=== PATIENT | female | born 1935 | race Caucasian/White ===

== ENCOUNTER 2016-06-08 18:47 | Inpatient (IN) | payer MEDICARE, OTHER ==
[~2016-06-08] VITALS: Ht 157.5 cm; Wt 54.4 kg
[~2016-06-08 18:47] MED LIST: ACET-784 PO; ASPI81 PO; ATOR20TA86 PO; BISA10S PR; DSS100 PO; FE PR; GLUC1KIT IM; HEPARIN SODIUM,PORCINE 1,000 UNITS/ML VIAL IVP ONE; HYDR-305 PO; INSNOV SQ; INSU100C6 SQ; LISI-662 PO; METF500T4 PO; MOM30 PO; MULT-1203 PO; OS500 PO; SIME125C81 PO; [UNRECOGNIZED DRUG - CODE] PO
[2016-06-08] MEDS ORDERED: ACETAMINOPHEN 325 MG RECTAL SUPPOSITORY PR ONE (19:33)
[2016-06-08] MEDS ORDERED: ACETAMINOPHEN 650 MG RECTAL SUPPOSITORY PR ONE ×2 (19:34→19:45)
[2016-06-08 19:42] LABS: ORIG DRAW (USER) PTCARESTAF
[2016-06-08 19:44] LABS: ANION GAP 6 mmol/L (8-16); CALCIUM, TOTAL 8.5 mg/dL (8.8-10.5); CARBON DIOXIDE 30 mmol/L (22-29); CHLORIDE 102 mmol/L (98-107); GLOMERULAR FILTR. RATE CALC 48 mL/min (>60); POTASSIUM 4.2 mmol/L (3.5-5.1); SODIUM SERUM 138 mmol/L (136-145); UREA NITROGEN, BLOOD 22 mg/dL (7-18)
[2016-06-08 19:50] LABS: ALANINE AMINOTRANSFERASE 15 U/L (12-78); ASPARTATE AMINOTRANSFERASE 23 U/L (15-37); CREATINE KINASE, TOTAL 68 U/L (26-192); TOTAL PROTEIN, SERUM 6.9 g/dL (6.4-8.2)
[2016-06-08 19:52] LABS: INR 1.1 (0.9-1.1)
[2016-06-08 20:05] LABS: BASOPHILS # (AUTO) 0.06 K/uL (0.00-0.20); BASOPHILS % (AUTO) 0.3 % (0.0-2.0); EOSINOPHILS # (AUTO) 0.01 K/uL (0.00-0.70); EOSINOPHILS % (AUTO) 0.06 % (1.0-6.0); HEMATOCRIT 34.6 % (36-46); HEMOGLOBIN 11.5 g/dL (12.0-16.0); LYMPHOCYTES # (AUTO) 1.8 K/uL (1.0-4.8); LYMPHOCYTES % (AUTO) 9.6 % (22.0-44.0); MEAN CORPUSCULAR HEMOGLOBIN 29.3 pg (26.0-34.0); MEAN CORPUSCULAR HGB CONC 33.2 G/dL (31.0-37.0); MEAN CORPUSCULAR VOLUME 88 fL (80-100); MONOCYTES # (AUTO) 1.2 K/uL (0.1-1.0); MONOCYTES % (AUTO) 6.5 % (2.0-9.0); NEUTROPHILS # (AUTO) 15.5 K/uL (1.8-7.7); NEUTROPHILS % (AUTO) 83.6 % (40.0-70.0); PLATELET COUNT (AUTO) 181 K/uL (150-450); RED BLOOD CELL COUNT(AUTO) 3.93 MIL/uL (4.00-5.20); RED CELL DISTRIBUTION WIDTH 13.9 % (11.5-14.5); WHITE BLOOD COUNT (AUTO) 18.6 K/uL (4.5-11.0)
[2016-06-08] MEDS ORDERED: SODIUM CHLORIDE 0.9% 1,000 ML IV ONE ×2 (20:06→21:00)
[2016-06-08 20:29] LABS: APPEARANCE,URINE CLOUDY (CLEAR); GLUCOSE, URINE (UA) NEGATIVE (NEGATIVE); KETONES,URINE NEGATIVE (NEGATIVE); LEUKOCYTE ESTERASE ,URINE SMALL (NEGATIVE); OCCULT BLOOD,URINE NEGATIVE (NEGATIVE); PROTEIN,URINE NEGATIVE (NEGATIVE)
[2016-06-08] MEDS ORDERED: VANCOMYCIN HCL 1 GM/D5% WATER 200 ML IV ONE (20:30)
[2016-06-08 20:33] LABS: ADD UA MICROSCOPIC YES
[2016-06-08 20:45] LABS: RBC,URINE 0-2 /HPF (0-2); SQUAMOUS EPITHELIAL CELL,UR Rare /LPF (None Seen)
[2016-06-08 21:25] LABS: REFLEX LACTIC ACID? YES YES
[2016-06-08] MEDS ORDERED: IPRATROPIUM BROMIDE 0.5 MG/2.5 ML NEB SOLUTION NEB PRN (21:30)
[2016-06-08] MEDS ORDERED: ONDANSETRON HCL 4 MG/2 ML VIAL IVP PRN (21:30)
[2016-06-08] MEDS ORDERED: ACETAMINOPHEN 325 MG TABLET PO PRN ×2 (21:30)
[2016-06-08] MEDS ORDERED: BISACODYL 10 MG RECTAL RECTAL SUPPOSITORY PR PRN ×2 (21:30)
[2016-06-08] MEDS ORDERED: MAGNESIUM HYDROXIDE SUSPENSION 30 ML UDCUP PO PRN ×2 (21:30)
[2016-06-08] MEDS ORDERED: HYDROCODONE/ACETAMINOPHEN 10-325 MG TABLET PO PRN (21:30)
[2016-06-08] MEDS ORDERED: ZOLPIDEM TARTRATE 5 MG TABLET PO PRN (21:30)
[2016-06-08] MEDS ORDERED: ALBUTEROL SULFATE 2.5 MG/0.5 ML NEB SOLUTION NEB PRN (21:30)
[2016-06-08] MEDS ORDERED: HYDROCODONE/ACETAMINOPHEN 5-325 MG TABLET PO PRN (21:30)
[2016-06-08] MEDS ORDERED: MORPHINE SULFATE 2 MG/ML SYRINGE IVP PRN (21:42)
[2016-06-09] VITALS (9 sets, daily range): BP systolic 90–135; BP diastolic 41–77
[2016-06-09] MEDS: HEPARIN SODIUM,PORCINE 5,000 UNITS/ML VIAL SQ SCH ×3 (01:02→16:04)
[2016-06-09] MEDS ORDERED: SODIUM CHLORIDE 0.9% 500 ML IV ONE ×2 (06:51→09:47)
[2016-06-09] MEDS: MetFORMIN HCL 500 MG TABLET PO SCH ×2 (08:00→18:00)
[2016-06-09] MEDS ORDERED: SODIUM BICARBONATE 50 MEQ/50 ML VIAL ONE (08:54)
[2016-06-09] MEDS ORDERED: VANCOMYCIN HCL 1 GM/VIAL ONE (08:54)
[2016-06-09] MEDS ORDERED: LIDOCAINE HCL/PF 1% 30 ML VIAL ONE (08:54)
[2016-06-09] MEDS ORDERED: DOCUSATE SODIUM 100 MG CAPSULE PO SCH (09:00)
[2016-06-09] MEDS ORDERED: VANCOMYCIN HCL 1 GM/VIAL IRRIG ONE (10:00)
[2016-06-09] MEDS ORDERED: LIDOCAINE 1% 30 ML/SOD BICARB 8.4% 4 ML SQ ONE (10:00)
[2016-06-09] MEDS ORDERED: VANCOMYCIN HCL 0.5 GM in DEXTROSE 5%-WATER 100 ML IV ONE (10:00)
[2016-06-09] MEDS: PANTOPRAZOLE SODIUM 40 MG/VIAL IVP SCH (11:06)
[2016-06-09] MEDS: ASPIRIN 81 MG CHEWABLE TABLET PO SCH (12:00)
[2016-06-09] MEDS: DOCUSATE SODIUM 100 MG CAPSULE PO SCH ×2 (12:00→21:00)
[2016-06-09] MEDS: CALCIUM OYSTER SHELL 500 MG TABLET PO SCH ×2 (12:00→21:00)
[2016-06-09] MEDS: MULTIVITAMINS, THERAPEUTIC TABLET PO SCH (12:00)
[2016-06-09] MEDS ORDERED: DEXTROSE 50%-WATER 25 GM/50 ML SYRINGE IVP PRN (12:15)
[2016-06-09 12:45] LABS: BASOPHILS # (AUTO) 0.03 K/uL (0.00-0.20); BASOPHILS % (AUTO) 0.4 % (0.0-2.0); EOSINOPHILS # (AUTO) 0.12 K/uL (0.00-0.70); EOSINOPHILS % (AUTO) 1.31 % (1.0-6.0); HEMATOCRIT 27.5 % (36-46); HEMOGLOBIN 9.3 g/dL (12.0-16.0); LYMPHOCYTES # (AUTO) 1.5 K/uL (1.0-4.8); LYMPHOCYTES % (AUTO) 17.4 % (22.0-44.0); MEAN CORPUSCULAR HEMOGLOBIN 29.5 pg (26.0-34.0); MEAN CORPUSCULAR HGB CONC 33.7 G/dL (31.0-37.0); MEAN CORPUSCULAR VOLUME 87 fL (80-100); MONOCYTES # (AUTO) 0.4 K/uL (0.1-1.0); MONOCYTES % (AUTO) 4.1 % (2.0-9.0); NEUTROPHILS # (AUTO) 6.8 K/uL (1.8-7.7); NEUTROPHILS % (AUTO) 76.8 % (40.0-70.0); PLATELET COUNT (AUTO) 142 K/uL (150-450); RED BLOOD CELL COUNT(AUTO) 3.15 MIL/uL (4.00-5.20); RED CELL DISTRIBUTION WIDTH 14.3 % (11.5-14.5); WHITE BLOOD COUNT (AUTO) 8.9 K/uL (4.5-11.0)
[2016-06-09 12:57] LABS: ANION GAP 4 mmol/L (8-16); CALCIUM, TOTAL 7.7 mg/dL (8.8-10.5); CARBON DIOXIDE 29 mmol/L (22-29); CHLORIDE 108 mmol/L (98-107); CREATININE 0.73 mg/dL (0.60-1.30); GLOMERULAR FILTR. RATE CALC > 60 mL/min (>60); POTASSIUM 3.5 mmol/L (3.5-5.1); SODIUM SERUM 141 mmol/L (136-145); UREA NITROGEN, BLOOD 18 mg/dL (7-18)
[2016-06-09 13:03] LABS: ALANINE AMINOTRANSFERASE 13 U/L (12-78); ALBUMIN 2.5 g/dL (3.4-5.0); ASPARTATE AMINOTRANSFERASE 19 U/L (15-37); BILIRUBIN,TOTAL 0.8 mg/dL (0.1-1.0); TOTAL PROTEIN, SERUM 5.8 g/dL (6.4-8.2)
[2016-06-09] MEDS ORDERED: SIMETHICONE 80 MG CHEWABLE TABLET CHEW PRN (15:15)
[2016-06-09] MEDS: ATORVASTATIN CALCIUM 20 MG TABLET PO SCH (21:00)
[2016-06-10] MEDS: HEPARIN SODIUM,PORCINE 5,000 UNITS/ML VIAL SQ SCH ×3 (02:11→16:31)
[2016-06-10 04:02] VITALS: BP 144/58
[2016-06-10 06:27] LABS: GLUCOSE,POINT OF CARE 76 MG/DL (70-110)
[2016-06-10 08:17] LABS: BASOPHILS # (AUTO) 0.05 K/uL (0.00-0.20); BASOPHILS % (AUTO) 0.7 % (0.0-2.0); EOSINOPHILS % (AUTO) 3.71 % (1.0-6.0); HEMATOCRIT 29.9 % (36-46); HEMOGLOBIN 10.1 g/dL (12.0-16.0); LYMPHOCYTES # (AUTO) 1.9 K/uL (1.0-4.8); MEAN CORPUSCULAR HEMOGLOBIN 29.8 pg (26.0-34.0); MEAN CORPUSCULAR HGB CONC 33.9 G/dL (31.0-37.0); MEAN CORPUSCULAR VOLUME 88 fL (80-100); MONOCYTES # (AUTO) 0.5 K/uL (0.1-1.0); MONOCYTES % (AUTO) 5.6 % (2.0-9.0); NEUTROPHILS # (AUTO) 5.3 K/uL (1.8-7.7); PLATELET COUNT (AUTO) 173 K/uL (150-450); RED BLOOD CELL COUNT(AUTO) 3.39 MIL/uL (4.00-5.20); RED CELL DISTRIBUTION WIDTH 13.7 % (11.5-14.5); WHITE BLOOD COUNT (AUTO) 8.1 K/uL (4.5-11.0)
[2016-06-10 08:19] VITALS: BP 130/55
[2016-06-10 08:32] LABS: ALANINE AMINOTRANSFERASE 13 U/L (12-78); ALBUMIN 2.6 g/dL (3.4-5.0); ANION GAP 8 mmol/L (8-16); ASPARTATE AMINOTRANSFERASE 21 U/L (15-37); BILIRUBIN,TOTAL 0.6 mg/dL (0.1-1.0); CALCIUM, TOTAL 8.1 mg/dL (8.8-10.5); CARBON DIOXIDE 29 mmol/L (22-29); CHLORIDE 105 mmol/L (98-107); CREATININE 0.71 mg/dL (0.60-1.30); GLOMERULAR FILTR. RATE CALC > 60 mL/min (>60); POTASSIUM 3.7 mmol/L (3.5-5.1); SODIUM SERUM 142 mmol/L (136-145); UREA NITROGEN, BLOOD 14 mg/dL (7-18)
[2016-06-10] MEDS: CALCIUM OYSTER SHELL 500 MG TABLET PO SCH ×2 (08:58→21:12)
[2016-06-10] MEDS: MULTIVITAMINS, THERAPEUTIC TABLET PO SCH (08:58)
[2016-06-10] MEDS: DOCUSATE SODIUM 100 MG CAPSULE PO SCH ×2 (08:58→21:12)
[2016-06-10] MEDS: ASPIRIN 81 MG CHEWABLE TABLET PO SCH (08:58)
[2016-06-10] MEDS: MetFORMIN HCL 500 MG TABLET PO SCH ×2 (08:58→18:21)
[2016-06-10] MEDS: PANTOPRAZOLE SODIUM 40 MG/VIAL IVP SCH (09:00)
[2016-06-10 11:33] VITALS: BP 136/46
[2016-06-10 11:46] LABS: GLUCOSE,POINT OF CARE 81 MG/DL (70-110)
[2016-06-10 15:22] VITALS: BP 126/53
[2016-06-10 19:27] VITALS: BP 127/58
[2016-06-10] MEDS: ATORVASTATIN CALCIUM 20 MG TABLET PO SCH (21:12)
[2016-06-10 23:28] VITALS: BP 136/51
[2016-06-11] MEDS: HEPARIN SODIUM,PORCINE 5,000 UNITS/ML VIAL SQ SCH ×4 (01:33→20:55)
[2016-06-11 04:07] VITALS: BP 137/73
[2016-06-11 06:19] LABS: BASOPHILS % (AUTO) 0.4 % (0.0-2.0); EOSINOPHILS % (AUTO) 4.8 % (1.0-6.0); HEMATOCRIT 29.8 % (36-46); HEMOGLOBIN 9.8 g/dL (12.0-16.0); LYMPHOCYTES # (AUTO) 1.5 K/uL (1.0-4.8); LYMPHOCYTES % (AUTO) 20.5 % (22.0-44.0); MEAN CORPUSCULAR HEMOGLOBIN 29.4 pg (26.0-34.0); MEAN CORPUSCULAR VOLUME 89 fL (80-100); MONOCYTES # (AUTO) 0.4 K/uL (0.1-1.0); MONOCYTES % (AUTO) 5.9 % (2.0-9.0); NEUTROPHILS # (AUTO) 5.1 K/uL (1.8-7.7); NEUTROPHILS % (AUTO) 68.4 % (40.0-70.0); PLATELET COUNT (AUTO) 180 K/uL (150-450); RED BLOOD CELL COUNT(AUTO) 3.35 MIL/uL (4.00-5.20); RED CELL DISTRIBUTION WIDTH 13.8 % (11.5-14.5); WHITE BLOOD COUNT (AUTO) 7.4 K/uL (4.5-11.0)
[2016-06-11 06:36] LABS: ALANINE AMINOTRANSFERASE 12 U/L (12-78); ALBUMIN 2.5 g/dL (3.4-5.0); ANION GAP 9 mmol/L (8-16); ASPARTATE AMINOTRANSFERASE 20 U/L (15-37); BILIRUBIN,TOTAL 0.6 mg/dL (0.1-1.0); CALCIUM, TOTAL 8.1 mg/dL (8.8-10.5); CARBON DIOXIDE 28 mmol/L (22-29); CHLORIDE 105 mmol/L (98-107); CREATININE 0.77 mg/dL (0.60-1.30); GLOMERULAR FILTR. RATE CALC > 60 mL/min (>60); POTASSIUM 3.4 mmol/L (3.5-5.1); SODIUM SERUM 142 mmol/L (136-145); UREA NITROGEN, BLOOD 12 mg/dL (7-18)
[2016-06-11 08:49] VITALS: BP 146/77
[2016-06-11] MEDS: MetFORMIN HCL 500 MG TABLET PO SCH ×2 (09:08→18:00)
[2016-06-11] MEDS: CALCIUM OYSTER SHELL 500 MG TABLET PO SCH ×3 (09:09→21:00)
[2016-06-11] MEDS: ASPIRIN 81 MG CHEWABLE TABLET PO SCH (09:09)
[2016-06-11] MEDS: PANTOPRAZOLE SODIUM 40 MG/VIAL IVP SCH (09:09)
[2016-06-11] MEDS: DOCUSATE SODIUM 100 MG CAPSULE PO SCH ×3 (09:09→21:00)
[2016-06-11] MEDS: MULTIVITAMINS, THERAPEUTIC TABLET PO SCH (09:09)
[2016-06-11] MEDS ORDERED: POTASSIUM CHLORIDE 20 MEQ ER TABLET PO ONE (09:15)
[2016-06-11 12:05] VITALS: BP 133/58
[2016-06-11 16:28] VITALS: BP 133/59
[2016-06-11 18:12] LABS: GLUCOSE,POINT OF CARE 81 MG/DL (70-110)
[2016-06-11] MEDS ORDERED: VANCOMYCIN HCL 1 GM/D5% WATER 200 ML IV SCH (18:15)
[2016-06-11 18:31] LABS: GLUCOSE,POINT OF CARE 151 MG/DL (70-110)
[2016-06-11] MEDS ORDERED: VANCOMYCIN HCL 1 GM/D5% WATER 200 ML IV ONE (19:00)
[2016-06-11] MEDS ORDERED: SODIUM CHLORIDE 0.9% 250 ML IV ONE (20:49)
[2016-06-11] MEDS: ATORVASTATIN CALCIUM 20 MG TABLET PO SCH ×2 (20:55→21:00)
[2016-06-11] MEDS: VANCOMYCIN HCL 750 MG in DEXTROSE 5%-WATER 150 ML IV SCH (20:56)
[2016-06-11 20:58] VITALS: BP 147/64
[2016-06-12 00:14] VITALS: BP 142/61
[2016-06-12 05:15] VITALS: BP 123/66
[2016-06-12 06:28] LABS: BASOPHILS # (AUTO) 0.03 K/uL (0.00-0.20); BASOPHILS % (AUTO) 0.5 % (0.0-2.0); EOSINOPHILS # (AUTO) 0.33 K/uL (0.00-0.70); EOSINOPHILS % (AUTO) 5.29 % (1.0-6.0); HEMATOCRIT 29.4 % (36-46); HEMOGLOBIN 9.9 g/dL (12.0-16.0); LYMPHOCYTES # (AUTO) 1.6 K/uL (1.0-4.8); LYMPHOCYTES % (AUTO) 25.1 % (22.0-44.0); MEAN CORPUSCULAR HEMOGLOBIN 29.3 pg (26.0-34.0); MEAN CORPUSCULAR HGB CONC 33.8 G/dL (31.0-37.0); MEAN CORPUSCULAR VOLUME 87 fL (80-100); MONOCYTES # (AUTO) 0.4 K/uL (0.1-1.0); MONOCYTES % (AUTO) 6.9 % (2.0-9.0); NEUTROPHILS # (AUTO) 3.8 K/uL (1.8-7.7); NEUTROPHILS % (AUTO) 62.2 % (40.0-70.0); PLATELET COUNT (AUTO) 206 K/uL (150-450); RED BLOOD CELL COUNT(AUTO) 3.39 MIL/uL (4.00-5.20); RED CELL DISTRIBUTION WIDTH 13.6 % (11.5-14.5); WHITE BLOOD COUNT (AUTO) 6.2 K/uL (4.5-11.0)
[2016-06-12 07:18] VITALS: BP 119/60
[2016-06-12 07:22] LABS: ALANINE AMINOTRANSFERASE 14 U/L (12-78); ALBUMIN 2.6 g/dL (3.4-5.0); ANION GAP 10 mmol/L (8-16); ASPARTATE AMINOTRANSFERASE 22 U/L (15-37); BILIRUBIN,TOTAL 0.6 mg/dL (0.1-1.0); CALCIUM, TOTAL 8.4 mg/dL (8.8-10.5); CARBON DIOXIDE 27 mmol/L (22-29); CHLORIDE 104 mmol/L (98-107); CREATININE 0.81 mg/dL (0.60-1.30); GLOMERULAR FILTR. RATE CALC > 60 mL/min (>60); POTASSIUM 3.3 mmol/L (3.5-5.1); SODIUM SERUM 141 mmol/L (136-145); TOTAL PROTEIN, SERUM 6.1 g/dL (6.4-8.2); UREA NITROGEN, BLOOD 9 mg/dL (7-18)
[2016-06-12] MEDS: DOCUSATE SODIUM 100 MG CAPSULE PO SCH ×2 (07:58→20:39)
[2016-06-12] MEDS: MULTIVITAMINS, THERAPEUTIC TABLET PO SCH (07:58)
[2016-06-12] MEDS: HEPARIN SODIUM,PORCINE 5,000 UNITS/ML VIAL SQ SCH ×2 (07:58→16:35)
[2016-06-12] MEDS: CALCIUM OYSTER SHELL 500 MG TABLET PO SCH ×2 (07:58→20:40)
[2016-06-12] MEDS: PANTOPRAZOLE SODIUM 40 MG/VIAL IVP SCH (07:58)
[2016-06-12] MEDS: MetFORMIN HCL 500 MG TABLET PO SCH ×2 (07:58→17:41)
[2016-06-12] MEDS: ASPIRIN 81 MG CHEWABLE TABLET PO SCH (08:00)
[2016-06-12] MEDS ORDERED: POTASSIUM CHLORIDE 20 MEQ ER TABLET PO ONE (11:15)
[2016-06-12 11:22] VITALS: BP 130/46
[2016-06-12] MEDS: INSULIN ASPART 100 UNITS/ML SQ PRN ×2 (12:28→22:04)
[2016-06-12] MEDS: DOPamine HCL 400 MG/D5%-WATER 250 ML IV PRN (18:16)
[2016-06-12 20:00] VITALS: BP 134/58
[2016-06-12] MEDS ORDERED: SODIUM CHLORIDE 0.9% 250 ML IV ONE (20:35)
[2016-06-12] MEDS: VANCOMYCIN HCL 750 MG in DEXTROSE 5%-WATER 150 ML IV SCH (20:39)
[2016-06-12] MEDS: ATORVASTATIN CALCIUM 20 MG TABLET PO SCH (20:39)
[2016-06-13] VITALS: BP 102/46
[2016-06-13] MEDS: HEPARIN SODIUM,PORCINE 5,000 UNITS/ML VIAL SQ SCH ×4 (00:23→23:55)
[2016-06-13 04:00] VITALS: BP 112/44
[2016-06-13 05:03] LABS: BASOPHILS % (AUTO) 0.4 % (0.0-2.0); EOSINOPHILS % (AUTO) 4.4 % (1.0-6.0); HEMATOCRIT 33.8 % (36-46); HEMOGLOBIN 11.1 g/dL (12.0-16.0); LYMPHOCYTES % (AUTO) 24.8 % (22.0-44.0); MEAN CORPUSCULAR HEMOGLOBIN 29.3 pg (26.0-34.0); MEAN CORPUSCULAR VOLUME 89 fL (80-100); MONOCYTES # (AUTO) 0.6 K/uL (0.1-1.0); MONOCYTES % (AUTO) 7.2 % (2.0-9.0); NEUTROPHILS % (AUTO) 63.2 % (40.0-70.0); PLATELET COUNT (AUTO) 242 K/uL (150-450); RED CELL DISTRIBUTION WIDTH 14.1 % (11.5-14.5); WHITE BLOOD COUNT (AUTO) 7.9 K/uL (4.5-11.0)
[2016-06-13 05:30] LABS: ALANINE AMINOTRANSFERASE 17 U/L (12-78); ALBUMIN 2.7 g/dL (3.4-5.0); ANION GAP 6 mmol/L (8-16); ASPARTATE AMINOTRANSFERASE 25 U/L (15-37); BILIRUBIN,TOTAL 0.4 mg/dL (0.1-1.0); CALCIUM, TOTAL 8.8 mg/dL (8.8-10.5); CARBON DIOXIDE 30 mmol/L (22-29); CHLORIDE 103 mmol/L (98-107); CREATINE KINASE, TOTAL 31 U/L (26-192); CREATININE 0.86 mg/dL (0.60-1.30); GLOMERULAR FILTR. RATE CALC > 60 mL/min (>60); POTASSIUM 4.2 mmol/L (3.5-5.1); SODIUM SERUM 139 mmol/L (136-145); TOTAL PROTEIN, SERUM 6.6 g/dL (6.4-8.2); UREA NITROGEN, BLOOD 12 mg/dL (7-18)
[2016-06-13] MEDS: INSULIN ASPART 100 UNITS/ML SQ PRN (06:45)
[2016-06-13 08:00] VITALS: BP 123/58
[2016-06-13] MEDS: VANCOMYCIN HCL 1 GM/D5% WATER 200 ML IV SCH ×2 (08:29→20:05)
[2016-06-13] MEDS: PANTOPRAZOLE SODIUM 40 MG/VIAL IVP SCH (08:29)
[2016-06-13] MEDS: CALCIUM OYSTER SHELL 500 MG TABLET PO SCH ×3 (08:30→20:06)
[2016-06-13] MEDS: MULTIVITAMINS, THERAPEUTIC TABLET PO SCH ×2 (08:30→09:00)
[2016-06-13] MEDS: ASPIRIN 81 MG CHEWABLE TABLET PO SCH (08:31)
[2016-06-13] MEDS: MetFORMIN HCL 500 MG TABLET PO SCH ×2 (08:31→17:30)
[2016-06-13] MEDS: DOCUSATE SODIUM 100 MG CAPSULE PO SCH ×3 (08:31→20:05)
[2016-06-13 09:11] LABS: GLUCOSE COMMENT 1 Received Meds; GLUCOSE,POINT OF CARE 199 MG/DL (70-110)
[2016-06-13 09:12] LABS: GLUCOSE COMMENT 1 Received Meds; GLUCOSE,POINT OF CARE 151 MG/DL (70-110)
[2016-06-13 12:00] VITALS: BP 126/47
[2016-06-13 15:01] LABS: GLUCOSE,POINT OF CARE 122 MG/DL (70-110)
[2016-06-13 15:02] LABS: GLUCOSE,POINT OF CARE 101 MG/DL (70-110)
[2016-06-13 15:02] LABS: GLUCOSE COMMENT 1 Received Meds; GLUCOSE,POINT OF CARE 110 MG/DL (70-110)
[2016-06-13 15:02] LABS: GLUCOSE,POINT OF CARE 147 MG/DL (70-110)
[2016-06-13 15:02] LABS: GLUCOSE COMMENT 1 Juice/Food/D50 Given; GLUCOSE,POINT OF CARE 69 MG/DL (70-110)
[2016-06-13 15:02] LABS: GLUCOSE,POINT OF CARE 89 MG/DL (70-110)
[2016-06-13 15:16] LABS: GLUCOSE,POINT OF CARE 80 MG/DL (70-110)
[2016-06-13 15:16] LABS: GLUCOSE,POINT OF CARE 109 MG/DL (70-110)
[2016-06-13 15:21] LABS: GLUCOSE,POINT OF CARE 86 MG/DL (70-110)
[2016-06-13 16:00] VITALS: BP 140/60
[2016-06-13 17:12] LABS: GLUCOSE COMMENT 1 Received Meds; GLUCOSE,POINT OF CARE 140 MG/DL (70-110)
[2016-06-13] MEDS ORDERED: 0.9% SODIUM CHLORIDE 10 ML SYRINGE IVP PRN (17:15)
[2016-06-13] MEDS: DOPamine HCL 400 MG/D5%-WATER 250 ML IV PRN (18:13)
[2016-06-13 20:00] VITALS: BP 121/71
[2016-06-13] MEDS: ATORVASTATIN CALCIUM 20 MG TABLET PO SCH (20:06)
[2016-06-14] VITALS (7 sets, daily range): BP systolic 100–136; BP diastolic 42–72
[2016-06-14 05:32] LABS: BASOPHILS % (AUTO) 0.3 % (0.0-2.0); EOSINOPHILS % (AUTO) 4.1 % (1.0-6.0); HEMATOCRIT 39.2 % (36-46); HEMOGLOBIN 12.7 g/dL (12.0-16.0); LYMPHOCYTES # (AUTO) 2.1 K/uL (1.0-4.8); LYMPHOCYTES % (AUTO) 21.3 % (22.0-44.0); MEAN CORPUSCULAR HEMOGLOBIN 28.8 pg (26.0-34.0); MEAN CORPUSCULAR HGB CONC 32.4 G/dL (31.0-37.0); MEAN CORPUSCULAR VOLUME 89 fL (80-100); MONOCYTES # (AUTO) 0.7 K/uL (0.1-1.0); MONOCYTES % (AUTO) 6.7 % (2.0-9.0); NEUTROPHILS # (AUTO) 6.7 K/uL (1.8-7.7); NEUTROPHILS % (AUTO) 67.6 % (40.0-70.0); PLATELET COUNT (AUTO) 238 K/uL (150-450); RED BLOOD CELL COUNT(AUTO) 4.41 MIL/uL (4.00-5.20); RED CELL DISTRIBUTION WIDTH 13.8 % (11.5-14.5); WHITE BLOOD COUNT (AUTO) 9.9 K/uL (4.5-11.0)
[2016-06-14 05:41] LABS: BILIRUBIN,TOTAL 0.5 mg/dL (0.1-1.0); CALCIUM, TOTAL 8.6 mg/dL (8.8-10.5); CREATININE 0.92 mg/dL (0.60-1.30); POTASSIUM 3.9 mmol/L (3.5-5.1); TOTAL PROTEIN, SERUM 7.3 g/dL (6.4-8.2)
[2016-06-14] MEDS ORDERED: SODIUM CHLORIDE 0.9% 250 ML IV ONE ×2 (06:34→20:52)
[2016-06-14] MEDS: INSULIN ASPART 100 UNITS/ML SQ PRN (06:59)
[2016-06-14] MEDS: MetFORMIN HCL 500 MG TABLET PO SCH ×2 (07:54→16:46)
[2016-06-14] MEDS: HEPARIN SODIUM,PORCINE 5,000 UNITS/ML VIAL SQ SCH ×2 (08:21→16:46)
[2016-06-14] MEDS: PANTOPRAZOLE SODIUM 40 MG/VIAL IVP SCH (08:21)
[2016-06-14] MEDS: VANCOMYCIN HCL 1 GM/D5% WATER 200 ML IV SCH ×2 (08:21→20:48)
[2016-06-14] MEDS: MULTIVITAMINS, THERAPEUTIC TABLET PO SCH (09:00)
[2016-06-14] MEDS: CALCIUM OYSTER SHELL 500 MG TABLET PO SCH ×2 (09:00→20:48)
[2016-06-14] MEDS: DOCUSATE SODIUM 100 MG CAPSULE PO SCH ×2 (09:00→20:48)
[2016-06-14] MEDS: ASPIRIN 81 MG CHEWABLE TABLET PO SCH (09:00)
[2016-06-14 09:07] LABS: GLUCOSE COMMENT 1 Received Meds; GLUCOSE,POINT OF CARE 151 MG/DL (70-110)
[2016-06-14 10:06] LABS: GLUCOSE COMMENT 1 Received Meds; GLUCOSE,POINT OF CARE 135 MG/DL (70-110)
[2016-06-14] MEDS ORDERED: LIDOCAINE HCL/PF 1% 30 ML VIAL ONE (10:41)
[2016-06-14] MEDS ORDERED: LIDOCAINE 1% 30 ML/SOD BICARB 8.4% 4 ML SQ ONE (11:15)
[2016-06-14] MEDS: ATORVASTATIN CALCIUM 20 MG TABLET PO SCH (20:48)
[2016-06-15] VITALS: BP 94/57
[2016-06-15] MEDS: HEPARIN SODIUM,PORCINE 5,000 UNITS/ML VIAL SQ SCH ×3 (00:13→16:57)
[2016-06-15 04:00] VITALS: BP 98/59
[2016-06-15 05:10] LABS: BASOPHILS # (AUTO) 0.03 K/uL (0.00-0.20); BASOPHILS % (AUTO) 0.3 % (0.0-2.0); EOSINOPHILS # (AUTO) 0.19 K/uL (0.00-0.70); EOSINOPHILS % (AUTO) 1.85 % (1.0-6.0); HEMATOCRIT 34.4 % (36-46); HEMOGLOBIN 11.7 g/dL (12.0-16.0); LYMPHOCYTES # (AUTO) 2.6 K/uL (1.0-4.8); LYMPHOCYTES % (AUTO) 25.2 % (22.0-44.0); MEAN CORPUSCULAR HEMOGLOBIN 29.3 pg (26.0-34.0); MEAN CORPUSCULAR VOLUME 86 fL (80-100); MONOCYTES # (AUTO) 0.9 K/uL (0.1-1.0); NEUTROPHILS # (AUTO) 6.5 K/uL (1.8-7.7); NEUTROPHILS % (AUTO) 63.7 % (40.0-70.0); PLATELET COUNT (AUTO) 264 K/uL (150-450); RED BLOOD CELL COUNT(AUTO) 3.99 MIL/uL (4.00-5.20); RED CELL DISTRIBUTION WIDTH 14.4 % (11.5-14.5); WHITE BLOOD COUNT (AUTO) 10.2 K/uL (4.5-11.0)
[2016-06-15 05:22] LABS: ALBUMIN 2.9 g/dL (3.4-5.0); BILIRUBIN,TOTAL 0.6 mg/dL (0.1-1.0); CALCIUM, TOTAL 8.7 mg/dL (8.8-10.5); CREATININE 1.77 mg/dL (0.60-1.30); POTASSIUM 3.9 mmol/L (3.5-5.1); TOTAL PROTEIN, SERUM 6.6 g/dL (6.4-8.2)
[2016-06-15] MEDS: MetFORMIN HCL 500 MG TABLET PO SCH ×2 (07:54→17:30)
[2016-06-15] MEDS: VANCOMYCIN HCL 1 GM/D5% WATER 200 ML IV SCH ×2 (07:54→21:29)
[2016-06-15] MEDS: ASPIRIN 81 MG CHEWABLE TABLET PO SCH (07:54)
[2016-06-15] MEDS: CALCIUM OYSTER SHELL 500 MG TABLET PO SCH ×2 (07:54→21:28)
[2016-06-15] MEDS: DOCUSATE SODIUM 100 MG CAPSULE PO SCH ×2 (07:54→21:28)
[2016-06-15] MEDS: PANTOPRAZOLE SODIUM 40 MG/VIAL IVP SCH (07:55)
[2016-06-15] MEDS: MULTIVITAMINS, THERAPEUTIC TABLET PO SCH (07:55)
[2016-06-15 08:00] VITALS: BP 108/35
[2016-06-15 08:36] LABS: GLUCOSE,POINT OF CARE 118 MG/DL (70-110)
[2016-06-15 08:36] LABS: GLUCOSE,POINT OF CARE 117 MG/DL (70-110)
[2016-06-15 09:45] LABS: GLUCOSE,POINT OF CARE 102 MG/DL (70-110)
[2016-06-15 12:00] VITALS: BP 106/66
[2016-06-15 16:00] VITALS: BP 103/64
[2016-06-15 17:56] LABS: GLUCOSE,POINT OF CARE 112 MG/DL (70-110)
[2016-06-15 17:56] LABS: GLUCOSE,POINT OF CARE 95 MG/DL (70-110)
[2016-06-15] MEDS ORDERED: SODIUM CHLORIDE 0.9% 250 ML IV ONE (18:00)
[2016-06-15] MEDS ORDERED: SODIUM CHLORIDE 0.9% 800 ML IV ONE (18:00)
[2016-06-15] MEDS ORDERED: DEXTROSE 5%-0.45% SODIUM CHL 1,000 ML IV SCH (18:00)
[2016-06-15] MEDS ORDERED: SODIUM CHLORIDE 0.9% 1,000 ML IV ONE (18:04)
[2016-06-15 20:00] VITALS: BP 120/51
[2016-06-15] MEDS: ATORVASTATIN CALCIUM 20 MG TABLET PO SCH (21:28)
[2016-06-16 00:20] VITALS: BP 127/57
[2016-06-16] MEDS: HEPARIN SODIUM,PORCINE 5,000 UNITS/ML VIAL SQ SCH ×3 (01:13→16:07)
[2016-06-16 04:00] VITALS: BP 114/66
[2016-06-16 04:56] LABS: BASOPHILS % (AUTO) 0.7 % (0.0-2.0); EOSINOPHILS % (AUTO) 2.6 % (1.0-6.0); HEMATOCRIT 30.7 % (36-46); HEMOGLOBIN 10.3 g/dL (12.0-16.0); LYMPHOCYTES # (AUTO) 1.4 K/uL (1.0-4.8); LYMPHOCYTES % (AUTO) 16.2 % (22.0-44.0); MEAN CORPUSCULAR HEMOGLOBIN 29.4 pg (26.0-34.0); MEAN CORPUSCULAR HGB CONC 33.4 G/dL (31.0-37.0); MEAN CORPUSCULAR VOLUME 88 fL (80-100); MONOCYTES # (AUTO) 0.7 K/uL (0.1-1.0); MONOCYTES % (AUTO) 8.5 % (2.0-9.0); NEUTROPHILS # (AUTO) 6.3 K/uL (1.8-7.7); PLATELET COUNT (AUTO) 214 K/uL (150-450); RED BLOOD CELL COUNT(AUTO) 3.49 MIL/uL (4.00-5.20); WHITE BLOOD COUNT (AUTO) 8.8 K/uL (4.5-11.0)
[2016-06-16 05:14] LABS: ALBUMIN 2.6 g/dL (3.4-5.0); BILIRUBIN,TOTAL 0.6 mg/dL (0.1-1.0); CALCIUM, TOTAL 7.8 mg/dL (8.8-10.5); CREATININE 2.73 mg/dL (0.60-1.30); POTASSIUM 3.6 mmol/L (3.5-5.1)
[2016-06-16 08:00] VITALS: BP 100/45
[2016-06-16] MEDS: PANTOPRAZOLE SODIUM 40 MG/VIAL IVP SCH (08:10)
[2016-06-16] MEDS: MULTIVITAMINS, THERAPEUTIC TABLET PO SCH (08:10)
[2016-06-16] MEDS: DOCUSATE SODIUM 100 MG CAPSULE PO SCH ×2 (08:11→19:59)
[2016-06-16] MEDS: CALCIUM OYSTER SHELL 500 MG TABLET PO SCH ×2 (08:11→19:59)
[2016-06-16] MEDS: MetFORMIN HCL 500 MG TABLET PO SCH (08:11)
[2016-06-16] MEDS: ASPIRIN 81 MG CHEWABLE TABLET PO SCH (08:11)
[2016-06-16] MEDS: VANCOMYCIN HCL 1 GM/D5% WATER 200 ML IV SCH ×2 (08:48→19:58)
[2016-06-16] MEDS: DEXTROSE 5%-0.45% SODIUM CHL 1,000 ML IV SCH (10:16)
[2016-06-16 12:00] VITALS: BP 113/62
[2016-06-16 16:00] VITALS: BP 94/52
[2016-06-16] MEDS: INSULIN ASPART 100 UNITS/ML SQ PRN (17:20)
[2016-06-16 17:51] LABS: GLUCOSE COMMENT 1 Received Meds; GLUCOSE,POINT OF CARE 169 MG/DL (70-110)
[2016-06-16 17:51] LABS: GLUCOSE,POINT OF CARE 85 MG/DL (70-110)
[2016-06-16 17:51] LABS: GLUCOSE,POINT OF CARE 113 MG/DL (70-110)
[2016-06-16] MEDS: ATORVASTATIN CALCIUM 20 MG TABLET PO SCH (19:59)
[2016-06-16 20:00] VITALS: BP 109/45
[2016-06-17] VITALS: BP 113/45
[2016-06-17] MEDS: HEPARIN SODIUM,PORCINE 5,000 UNITS/ML VIAL SQ SCH ×3 (00:39→16:04)
[2016-06-17 01:01] LABS: GLUCOSE,POINT OF CARE 111 MG/DL (70-110)
[2016-06-17 02:51] LABS: GLUCOSE,POINT OF CARE 138 MG/DL (70-110)
[2016-06-17 04:00] VITALS: BP 109/87
[2016-06-17 05:53] LABS: CALCIUM, TOTAL 7.9 mg/dL (8.8-10.5); CREATININE 3.5 mg/dL (0.60-1.30); POTASSIUM 4.2 mmol/L (3.5-5.1)
[2016-06-17] MEDS: DEXTROSE 5%-0.45% SODIUM CHL 1,000 ML IV SCH (06:31)
[2016-06-17] MEDS: INSULIN ASPART 100 UNITS/ML SQ PRN ×2 (06:43→11:17)
[2016-06-17] MEDS ORDERED: VANCOMYCIN HCL 1 GM/D5% WATER 200 ML IV PRN (07:45)
[2016-06-17 08:00] VITALS: BP 104/51
[2016-06-17] MEDS: ASPIRIN 81 MG CHEWABLE TABLET PO SCH (08:40)
[2016-06-17] MEDS: CALCIUM OYSTER SHELL 500 MG TABLET PO SCH ×2 (08:40→20:38)
[2016-06-17] MEDS: PANTOPRAZOLE SODIUM 40 MG/VIAL IVP SCH (08:40)
[2016-06-17] MEDS: DOCUSATE SODIUM 100 MG CAPSULE PO SCH ×2 (08:40→20:38)
[2016-06-17] MEDS: MULTIVITAMINS, THERAPEUTIC TABLET PO SCH (08:40)
[2016-06-17 10:49] LABS: APPEARANCE,URINE CLOUDY (CLEAR); GLUCOSE, URINE (UA) NEGATIVE (NEGATIVE); KETONES,URINE NEGATIVE (NEGATIVE); LEUKOCYTE ESTERASE ,URINE LARGE (NEGATIVE); OCCULT BLOOD,URINE TRACE (NEGATIVE); PH,URINE 6.5 (5.0-8.0); PROTEIN,URINE NEGATIVE (NEGATIVE)
[2016-06-17 10:56] LABS: RBC,URINE 0-2 /HPF (0-2)
[2016-06-17 10:58] LABS: SQUAMOUS EPITHELIAL CELL,UR Rare /LPF (None Seen)
[2016-06-17] MEDS: DEXTROSE 5%-WATER 1,000 ML IV SCH (11:03)
[2016-06-17 12:00] VITALS: BP 106/31
[2016-06-17 16:00] VITALS: BP 106/40
[2016-06-17 16:36] LABS: GLUCOSE COMMENT 1 Received Meds; GLUCOSE,POINT OF CARE 150 MG/DL (70-110)
[2016-06-17] MEDS ORDERED: HEPARIN SODIUM,PORCINE 1,000 UNITS/ML VIAL IVP ONE ×4 (16:45→18:45)
[2016-06-17] MEDS ORDERED: HEPARIN SODIUM,PORCINE 1,000 UNITS/ML VIAL ONE (16:47)
[2016-06-17] MEDS ORDERED: MANNITOL 25%-12.5 GM/50 ML VIAL IVP PRN (18:45)
[2016-06-17 20:00] VITALS: BP 106/43
[2016-06-17] MEDS: ATORVASTATIN CALCIUM 20 MG TABLET PO SCH (20:38)
[2016-06-18] VITALS: BP 115/48
[2016-06-18] MEDS: HEPARIN SODIUM,PORCINE 5,000 UNITS/ML VIAL SQ SCH ×4 (00:21→23:23)
[2016-06-18 02:12] LABS: GLUCOSE COMMENT 1 Received Meds; GLUCOSE,POINT OF CARE 148 MG/DL (70-110)
[2016-06-18 02:12] LABS: GLUCOSE,POINT OF CARE 140 MG/DL (70-110)
[2016-06-18 04:00] VITALS: BP 119/48
[2016-06-18] MEDS: DEXTROSE 5%-WATER 1,000 ML IV SCH (06:25)
[2016-06-18 06:33] LABS: CALCIUM, TOTAL 7.8 mg/dL (8.8-10.5); CREATININE 2.14 mg/dL (0.60-1.30); MAGNESIUM 1.5 mg/dL (1.80-2.40); PHOSPHORUS 2.6 mg/dL (2.5-4.9); POTASSIUM 3.8 mmol/L (3.5-5.1)
[2016-06-18] MEDS: INSULIN ASPART 100 UNITS/ML SQ PRN (06:33)
[2016-06-18 06:37] LABS: BASOPHILS % (AUTO) 0.4 % (0.0-2.0); EOSINOPHILS % (AUTO) 1.4 % (1.0-6.0); HEMATOCRIT 29.2 % (36-46); HEMOGLOBIN 9.6 g/dL (12.0-16.0); LYMPHOCYTES # (AUTO) 1.3 K/uL (1.0-4.8); LYMPHOCYTES % (AUTO) 11.6 % (22.0-44.0); MEAN CORPUSCULAR HEMOGLOBIN 29.1 pg (26.0-34.0); MEAN CORPUSCULAR HGB CONC 32.8 G/dL (31.0-37.0); MEAN CORPUSCULAR VOLUME 89 fL (80-100); MONOCYTES # (AUTO) 0.6 K/uL (0.1-1.0); MONOCYTES % (AUTO) 5.2 % (2.0-9.0); NEUTROPHILS # (AUTO) 9.4 K/uL (1.8-7.7); NEUTROPHILS % (AUTO) 81.4 % (40.0-70.0); PLATELET COUNT (AUTO) 140 K/uL (150-450); RED BLOOD CELL COUNT(AUTO) 3.29 MIL/uL (4.00-5.20); RED CELL DISTRIBUTION WIDTH 14.2 % (11.5-14.5); WHITE BLOOD COUNT (AUTO) 11.5 K/uL (4.5-11.0)
[2016-06-18] MEDS ORDERED: HEPARIN SODIUM,PORCINE 1,000 UNITS/ML VIAL IVP ONE ×4 (06:45→09:45)
[2016-06-18] MEDS ORDERED: MANNITOL 25%-12.5 GM/50 ML VIAL IVP PRN ×2 (06:45→09:45)
[2016-06-18] MEDS ORDERED: SODIUM CHLORIDE 0.9% 2,000 ML IV ONE (07:55)
[2016-06-18 07:59] LABS: CALCIUM, TOTAL 7.6 mg/dL (8.8-10.5); CREATININE 1.16 mg/dL (0.60-1.30); POTASSIUM 3.3 mmol/L (3.5-5.1)
[2016-06-18 08:00] VITALS: BP 133/81
[2016-06-18] MEDS: MULTIVITAMINS, THERAPEUTIC TABLET PO SCH (08:01)
[2016-06-18] MEDS: DOCUSATE SODIUM 100 MG CAPSULE PO SCH ×2 (08:01→21:21)
[2016-06-18] MEDS: ASPIRIN 81 MG CHEWABLE TABLET PO SCH (08:02)
[2016-06-18] MEDS: PANTOPRAZOLE SODIUM 40 MG/VIAL IVP SCH (08:02)
[2016-06-18] MEDS: CALCIUM OYSTER SHELL 500 MG TABLET PO SCH ×2 (08:02→21:21)
[2016-06-18] MEDS ORDERED: POTASSIUM CHLORIDE 10% 40 MEQ/30 ML LIQUID UDCUP PO ONE (11:00)
[2016-06-18] MEDS ORDERED: MAGNESIUM OXIDE 400 MG TABLET PO PRN (11:30)
[2016-06-18] MEDS ORDERED: MAGNESIUM SULFATE 4 GM/WATER 100 ML IV PRN (11:30)
[2016-06-18] MEDS ORDERED: MAGNESIUM SULFATE 2 GM in DEXTROSE 5%-WATER 50 ML IV PRN (11:30)
[2016-06-18 12:00] VITALS: BP 125/67
[2016-06-18 12:02] LABS: ALBUMIN 2.4 g/dL (3.4-5.0)
[2016-06-18 16:00] VITALS: BP 122/64
[2016-06-18 20:00] VITALS: BP 133/64
[2016-06-18] MEDS: ATORVASTATIN CALCIUM 20 MG TABLET PO SCH (21:21)
[2016-06-18] MEDS: DOXYCYCLINE 100 MG in DEXTROSE 5%-WATER 100 ML IV SCH (23:22)
[2016-06-19] VITALS (15 sets, daily range): BP systolic 105–163; BP diastolic 43–72
[2016-06-19] MEDS: DEXTROSE 5%-WATER 1,000 ML IV SCH (03:49)
[2016-06-19 05:41] LABS: MAGNESIUM 2.1 mg/dL (1.80-2.40)
[2016-06-19] MEDS: HEPARIN SODIUM,PORCINE 5,000 UNITS/ML VIAL SQ SCH (08:00)
[2016-06-19] MEDS: DOCUSATE SODIUM 100 MG CAPSULE PO SCH (08:06)
[2016-06-19] MEDS: CALCIUM OYSTER SHELL 500 MG TABLET PO SCH (08:06)
[2016-06-19] MEDS: ASPIRIN 81 MG CHEWABLE TABLET PO SCH (08:06)
[2016-06-19] MEDS: MULTIVITAMINS, THERAPEUTIC TABLET PO SCH (08:07)
[2016-06-19] MEDS: PANTOPRAZOLE SODIUM 40 MG/VIAL IVP SCH (08:07)
[2016-06-19] MEDS ORDERED: SODIUM CHLORIDE 0.9% 500 ML IV ONE (08:20)
[2016-06-19 08:26] LABS: GLUCOSE,POINT OF CARE 116 MG/DL (70-110)
[2016-06-19 08:26] LABS: GLUCOSE,POINT OF CARE 132 MG/DL (70-110)
[2016-06-19 08:26] LABS: GLUCOSE,POINT OF CARE 129 MG/DL (70-110)
[2016-06-19 08:26] LABS: GLUCOSE,POINT OF CARE 126 MG/DL (70-110)
[2016-06-19 08:26] LABS: GLUCOSE COMMENT 1 Received Meds; GLUCOSE,POINT OF CARE 150 MG/DL (70-110)
[2016-06-19 08:26] LABS: GLUCOSE COMMENT 1 Received Meds; GLUCOSE,POINT OF CARE 154 MG/DL (70-110)
[2016-06-19] MEDS ORDERED: LIDOCAINE 1% 30 ML/SOD BICARB 8.4% 4 ML SQ ONE (08:30)
[2016-06-19] MEDS ORDERED: IOHEXOL 300 MG/ML 50 ML VIAL IVP ONE (08:30)
[2016-06-19] MEDS ORDERED: VANCOMYCIN HCL 1 GM/VIAL IRRIG ONE (08:30)
[2016-06-19] MEDS ORDERED: FentaNYL CITRATE-PF 100 MCG/2 ML VIAL IVP ONE (09:15)
[2016-06-19 09:32] LABS: BASOPHILS # (AUTO) 0.04 K/uL (0.00-0.20); BASOPHILS % (AUTO) 0.5 % (0.0-2.0); EOSINOPHILS # (AUTO) 0.44 K/uL (0.00-0.70); EOSINOPHILS % (AUTO) 5.35 % (1.0-6.0); HEMATOCRIT 29.2 % (36-46); HEMOGLOBIN 9.7 g/dL (12.0-16.0); LYMPHOCYTES # (AUTO) 1.3 K/uL (1.0-4.8); LYMPHOCYTES % (AUTO) 15.3 % (22.0-44.0); MEAN CORPUSCULAR HGB CONC 33.3 G/dL (31.0-37.0); MEAN CORPUSCULAR VOLUME 87 fL (80-100); MONOCYTES # (AUTO) 0.6 K/uL (0.1-1.0); MONOCYTES % (AUTO) 7.4 % (2.0-9.0); NEUTROPHILS # (AUTO) 5.9 K/uL (1.8-7.7); NEUTROPHILS % (AUTO) 71.5 % (40.0-70.0); PLATELET COUNT (AUTO) 100 K/uL (150-450); RED BLOOD CELL COUNT(AUTO) 3.35 MIL/uL (4.00-5.20); RED CELL DISTRIBUTION WIDTH 14.3 % (11.5-14.5); WHITE BLOOD COUNT (AUTO) 8.2 K/uL (4.5-11.0)
[2016-06-19 09:38] LABS: CREATININE 2.16 mg/dL (0.60-1.30); POTASSIUM 3.6 mmol/L (3.5-5.1)
[2016-06-19] MEDS: DOXYCYCLINE 100 MG in DEXTROSE 5%-WATER 100 ML IV SCH (10:47)
[2016-06-19] MEDS: INSULIN ASPART 100 UNITS/ML SQ PRN (11:49)
[2016-06-20 02:50] LABS: GLUCOSE COMMENT 1 Received Meds; GLUCOSE,POINT OF CARE 148 MG/DL (70-110)
[2016-06-20 06:31] LABS: HEPATITIS Bs ANTIGEN SCREEN P Negative (Negative); HEPATITIS C AB SCREEN 0.1 s/co ratio (0.0-0.9)
[2016-06-20 14:11] LABS: GLUCOSE,POINT OF CARE 115 MG/DL (70-110)
== END 2016-06-19 19:59 | DRG 171 ==
LOC: EMS 18:57 → 5S 20:30 → 5N 06-09 20:10 → ICU 06-12 17:25
PROVIDERS: ADMIT Hospitalist; ATTEND Hospitalist
PROC: 0JPT0PZ Removal of Cardiac Rhythm Related Device from Trunk Subcutaneous Tissue and Fascia, Open Approach (ICD-10-PCS; principal; 2016-06-09)
PROC: 02PA0MZ Removal of Cardiac Lead from Heart, Open Approach (ICD-10-PCS; 2016-06-09)
PROC: 5A1223Z Performance of Cardiac Pacing, Continuous (ICD-10-PCS; 2016-06-14)
PROC: 5A1D60Z (ICD-10-PCS; 2016-06-17)
PROC: 06HM33Z Insertion of Infusion Device into Right Femoral Vein, Percutaneous Approach (ICD-10-PCS; 2016-06-17)
PROC: B54BZZA Ultrasonography of Right Lower Extremity Veins, Guidance (ICD-10-PCS; 2016-06-17)
PROC: 0JH604Z Insertion of Pacemaker, Single Chamber into Chest Subcutaneous Tissue and Fascia, Open Approach (ICD-10-PCS; 2016-06-19)
PROC: 02HK3JZ Insertion of Pacemaker Lead into Right Ventricle, Percutaneous Approach (ICD-10-PCS; 2016-06-19)
DX: T82.7XXA Infection and inflammatory reaction due to other cardiac and vascular devices, implants and grafts, initial encounter (principal); A40.9 Streptococcal sepsis, unspecified; E43 Unspecified severe protein-calorie malnutrition; G93.40 Encephalopathy, unspecified; N17.9 Acute kidney failure, unspecified; E11.40 Type 2 diabetes mellitus with diabetic neuropathy, unspecified; I49.5 Sick sinus syndrome; G30.9 Alzheimer's disease, unspecified; F02.80 Dementia in other diseases classified elsewhere, unspecified severity, without behavioral disturbance, psychotic disturbance, mood disturbance, and anxiety; N39.0 Urinary tract infection, site not specified; B96.20 Unspecified Escherichia coli [E. coli] as the cause of diseases classified elsewhere; I10 Essential (primary) hypertension; E78.5 Hyperlipidemia, unspecified; E78.00 Pure hypercholesterolemia, unspecified; E87.1 Hypo-osmolality and hyponatremia; E87.6 Hypokalemia; M19.90 Unspecified osteoarthritis, unspecified site; F20.9 Schizophrenia, unspecified; K21.9 Gastro-esophageal reflux disease without esophagitis; R00.1 Bradycardia, unspecified; L03.90 Cellulitis, unspecified; J93.9 Pneumothorax, unspecified; M81.0 Age-related osteoporosis without current pathological fracture; T36.8X5A Adverse effect of other systemic antibiotics, initial encounter; Y83.1 Surgical operation with implant of artificial internal device as the cause of abnormal reaction of the patient, or of later complication, without mention of misadventure at the time of the procedure; Z79.4 Long term (current) use of insulin; Z88.0 Allergy status to penicillin; Z88.1 Allergy status to other antibiotic agents; Z68.21 Body mass index [BMI] 21.0-21.9, adult; Y92.89 Other specified places as the place of occurrence of the external cause; Y93.89 Activity, other specified; Y99.8 Other external cause status; Z88.8 Allergy status to other drugs, medicaments and biological substances; Z79.82 Long term (current) use of aspirin; Z79.899 Other long term (current) drug therapy; Z90.49 Acquired absence of other specified parts of digestive tract; Z90.710 Acquired absence of both cervix and uterus; Z98.890 Other specified postprocedural states; Z78.1 Physical restraint status
CPT/HCPCS: 33207; 33210; 33216; 33229; 36005; 76000; 76770; 80074; 82962; 83605; 83735; 84100; 87040; 87070; 87081; 87086; 87147; 87205; 88300; 90935; 92610; 93005; 93306; 96365; 96366; 99291; C9113; J1265; J1644; J3370; J3475; J3490; J7030; J7040; J7050; J7060